=== PATIENT | male | born 1970 | race Caucasian/White ===

== ENCOUNTER 2020-11-18 14:48 | Inpatient (IN) | payer OTHER ==
[~2020-11-18] VITALS: Ht 170.2 cm; Wt 85.4 kg
[2020-11-18 16:26] LABS: HEMATOCRIT 43.3 % (42.0-52.0); HEMOGLOBIN 15.6 g/dl (13.5-17.5); MEAN CORPUSCULAR HEMOGLOBIN 32.5 pg (27.0-33.0); MEAN CORPUSCULAR VOLUME 90.2 fl (80.0-96.0); PLATELET COUNT, AUTOMATED 212 10^3/uL (150-450); WHITE BLOOD COUNT 7.2 10^3/uL (4.0-10.0)
[2020-11-18 16:59] LABS: ACETAMINOPHEN LEVEL < 2.0 UG/ML (10.0-30.0); ALT/SGPT 50 U/L (12-78); BILIRUBIN,DIRECT 0.6 MG/DL (0.0-0.2); BILIRUBIN,TOTAL 1.7 MG/DL (0.2-1.0); BLOOD UREA NITROGEN 15 MG/DL (7-18); CARBON DIOXIDE LEVEL 27 MEQ/L (21-32); CHLORIDE LEVEL 103 MEQ/L (98-107); CPK CREATINE PHOSPHOKINASE 394 U/L (39-308); CREATININE FOR GFR 1.41 MG/DL (0.70-1.30); ETHYL ALCOHOL (ETHANOL) < 0.003 % (0.000-0.010); GLOMERULAR FILTRATION RATE 56.4 (>56); GLUCOSE, FASTING 105 MG/DL (70-100); POTASSIUM SERUM 3.7 MEQ/L (3.5-5.1); SALICYLATE LEVEL 2.9 MG/DL (5.0-30.0); SODIUM LEVEL 140 MEQ/L (136-145); TOTAL PROTEIN 7.5 GM/DL (6.4-8.2)
--- NOTE | 2020-11-18 17:59 | ECGEPIP ---
[facility] - ED Test Date: 2020-11-18 Pat Name: JONATHAN LORA Department: Room: - Gender: Male Pool Coordinator: : 1970 Requested By: Jovita Day Order Number: [id number] Reading MD: Jason Melvin Measurements Intervals [place] Rate: 71 P: RI: 136 QRS: 14 QRSD: 96 T: -10 QT: 412 QTc: 447 Interpretive Statements Sinus rhythm with premature atrial complexes with aberrant conduction Nonspecific T wave abnormality Comparison tracing not on file Electronically Signed on 11-18-2020 17:58:57 EDT by Jason Melvin
[2020-11-18 18:05] LABS: AMPHETAMINES LEVEL URINE POSITIVE (NEGATIVE); BARBITURATES URINE NEGATIVE (NEGATIVE); BENZODIAZEPINES URINE NEGATIVE (NEGATIVE); CANNABINOIDS URINE NEGATIVE (NEGATIVE); COCAINE METABOLITE URINE POSITIVE (NEGATIVE); METHADONE URINE NEGATIVE (NEGATIVE); OPIATES URINE NEGATIVE (NEGATIVE); PHENCYCLIDINE URINE NEGATIVE (NEGATIVE)
[2020-11-19] MEDS ORDERED: GABA-282 PO (09:18)
[2020-11-19] MEDS ORDERED: METO1TAB87 PO (09:18)
[2020-11-19] MEDS ORDERED: OLOP0.1D OU (09:18)
[2020-11-19] MEDS ORDERED: TRAZ1TAB14 PO (09:18)
[2020-11-19] MEDS ORDERED: CETI-24 PO (09:18)
[2020-11-19] MEDS ORDERED: PANT40TA29 PO (09:18)
[2020-11-19] MEDS ORDERED: PROB500T8 PO (09:18)
[2020-11-19] MEDS ORDERED: LEXA1TAB PO (09:18)
[2020-11-19] MEDS ORDERED: MAGIC MOUTHWASH SUSPENSION BTL SSP PRN (09:35)
[2020-11-20] MEDS: PROBENECID 500 MG TAB PO SCH ×2 (09:00→21:41)
[2020-11-20] MEDS ORDERED: ACETAMINOPHEN TAB 650MG DOSE (2X325MG) PO ONE ×2 (10:50→22:10)
[2020-11-20] MEDS: METOPROLOL TART 25 MG TABLET PO SCH ×2 (11:23→21:40)
[2020-11-20] MEDS: PANTOPRAZOLE 40MG TAB (PROTONIX) PO SCH (11:23)
[2020-11-20] MEDS: ESCITALOPRAM OXALATE 10 MG TAB (LEXAPRO) PO SCH (11:23)
[2020-11-20] MEDS: GABAPENTIN 300 MG CAP PO SCH ×2 (11:24→21:39)
[2020-11-20] MEDS: CETIRIZINE (ZyrTEC) 10 MG TAB PO SCH (11:24)
[2020-11-20] MEDS ORDERED: traZODone 50 MG TAB PO SCH (21:00)
[2020-11-21] MEDS: NICOTINE 21MG/24HR 1 EA TRANSDERMAL TD SCH (09:00)
[2020-11-21] MEDS: ESCITALOPRAM OXALATE 10 MG TAB (LEXAPRO) PO SCH (09:29)
[2020-11-21] MEDS: PROBENECID 500 MG TAB PO SCH ×2 (09:29→20:22)
[2020-11-21] MEDS: CETIRIZINE (ZyrTEC) 10 MG TAB PO SCH (09:29)
[2020-11-21] MEDS: GABAPENTIN 300 MG CAP PO SCH ×2 (09:29→20:22)
[2020-11-21] MEDS: METOPROLOL TART 25 MG TABLET PO SCH ×2 (09:30→20:21)
[2020-11-21] MEDS: PANTOPRAZOLE 40MG TAB (PROTONIX) PO SCH (09:30)
[2020-11-21 09:35] LABS: RSV AMPLIFICATION NEGATIVE (NEGATIVE)
[2020-11-21] MEDS ORDERED: ACETAMINOPHEN TAB 650MG DOSE (2X325MG) PO ONE (09:35)
[2020-11-21] MEDS ORDERED: OLANZapine ORAL DISINTEGRATING TAB 5MG PO PRN (13:25)
[2020-11-21] MEDS ORDERED: MOM 30ML SUSPENSION UDC PO PRN (13:25)
[2020-11-21 13:59] VITALS: BP 110/67
[2020-11-21] MEDS: ACETAMINOPHEN TAB 650MG DOSE (2X325MG) PO PRN (19:53)
[2020-11-21] MEDS: traZODone 50 MG TAB PO SCH (20:22)
[2020-11-22 06:34] VITALS: BP 124/69
[2020-11-22] MEDS: ACETAMINOPHEN TAB 650MG DOSE (2X325MG) PO PRN (08:36)
[2020-11-22] MEDS: PROBENECID 500 MG TAB PO SCH ×2 (08:36→20:56)
[2020-11-22] MEDS: PANTOPRAZOLE 40MG TAB (PROTONIX) PO SCH (08:36)
[2020-11-22] MEDS: GABAPENTIN 300 MG CAP PO SCH ×2 (08:36→20:57)
[2020-11-22] MEDS: METOPROLOL TART 25 MG TABLET PO SCH ×2 (08:37→20:57)
[2020-11-22] MEDS: ESCITALOPRAM OXALATE 10 MG TAB (LEXAPRO) PO SCH (08:37)
[2020-11-22] MEDS: CETIRIZINE (ZyrTEC) 10 MG TAB PO SCH (08:37)
[2020-11-22] MEDS: NICOTINE 21MG/24HR 1 EA TRANSDERMAL TD SCH (08:37)
--- NOTE | 2020-11-22 09:24 | MHHPEPDOC ---
General Date Of Admission: Nov 21, 2020 Legal Status: 9.39 Chief Complaint I was just scared and depressed I was thinking about jumping into a river ". History of Present Illness HISTORY OF THE PRESENT ILLNESS: Patient is a 50 -year-old , male, who [has extensive history of polysubstance abuse and depression with a recent discharge from an inpatient rehab facility in [place] in October. Patient came to [place] with his girlfriend to start a new life and was staying at his girlfriend's place but was using cocaine and tita . He was not able to find any permanent housing and had to leave his girlfriend's place and was feeling depressed hopeless and somewhat worthless. He came to the emergency room reporting vague suicidal ideas of jumping into a river and was admitted on 939 status. He denies any psychosis denies any history of jennie but has a long history of depression and has been taking Lexapro but his situation is not improving and he has no support system and has no financial resources and was feeling increasingly depressed.]. Psychiatric Review of Systems Depression (2 or more weeks): depressed mood, feelings of worthlesness, decreased energy, suicidal thoughts Jennie (4 or more days of): denies Psychosis: denies PTSD: denies Anxiety: situational anxiety Past Psychiatric History Previous Psychiatric Diagnosis: . Depression and polysubstance abuse Previous Psychiatric Admissions: . Past admissions in [place] and [facility]. recent inpatient treatment for rehab in October 2020 Suicide Attempts: . No history of a suicidal attempt Psychiatric Follow-up: . No outpatient linkage Psychiatric medications: . Taking Lexapro Past Medical History Medical Problems Has hypertension Head Injury: No Seizures: No Hospitalizations: No Surgeries: No Family Medical/Psychiatric HX Medical Problems Noncontributory Psychiatric Disorders: No (Has no contact with his family and he is not sure of their psychiatric history) Addiction: No Suicide Attemps/Completions: No Addiction History cocaine, other (tita) Social History Childhood: . Born in [place] Abuse/Trauma:. No history of abuse Current Living Situation: Homeless. Education: . High school Employment: . Unemployed has no financial resources Social Support: . No support system Legal: . Denies any legal history Marital: . Was once has 2 children with no contact Mental Status Examination General Appearance: appears stated age Build: average Demeanor: average Eye Contact: average Activity: average Behavior: cooperative Speech: clear, spontaneous, normal volume Mood: depressed Mood Depressed feeling sad hopeless worthless primarily due to his current life sit uation Affect: appropriate, congruent Thought Process: logical/linear Thought Content (Delusions): denies SI, HI, AVH, other (Had thoughts of suicide by jumping into a river but no clear intent) Thought Content (Other): none reported Thought Content (Aggressive): none reported Perception (Hallucinations): none reported Perception (Other): none reported Cognition (Impairment of): none reported Cognition(Intelligence Est.): average Oriented: Awake, Alert, Oriented times three Insight: fair Judgment: Fair Diagnoses Depressive disorder NOS polysubstance abuse A-FIB/CHADSVASC A-FIB History Current/History of A-Fib/PAF?: No Current PO Anticoag Therapy: No Age/Risk Factor Scoring CHADSVASC: CHADSVASC Response (Comments) Value Age Risk Factor Age < 65 years old 0 Gender Risk Factor Male 0 Hx of CHF No 0 Hx of HTN Yes 1 Hx of Stroke/TIA/or VTE No 0 Hx of Diabetes No 0 Hx of Vascular Disease No 0 Total 1 Treatment Treatment ordered: NONE Assessment Moderate depression due to multiple situational stress. Patient is not psychotic not actively suicidal but has no safe discharge plan and has no support system. We will continue his [facility] safe discharge plan Initial Treatment Plan 1. Patient was admitted on a 9.39 status. 2. Complete history was obtained. 3. With patients permission, family will be contacted and database will be expanded. 4. Patients medication regimen will be reviewed and changed accordingly. 5. Patient will be provided with protected environment. 6. Patient will be treated with individual, group, and milieu therapies. 7. Patient will receive supportive psych-education. 8. Discharge planning will commence immediately. 9. Outpatient follow-up treatment will be strongly recommended. 10. The initial treatment plan will focus initially on: * Depression. * Risk for suicide. ESTIMATED LENGTH OF STAY: 3-5 DAYS. TIME SPENT COUNSELING AND COORDINATING INITIAL CARE: 40 minutes. Tobacco Cessation Screen If Patient is a Smoker Yes Tobacco Cessation Tx Ordered?: Yes N/A-No Antipsychotics Vital Signs Vital Signs Date Time Temp Pulse Resp B/P (MAP) Pulse Ox O2 Delivery O2 Flow Rate FiO2 11/22/20 08:37 63 124/69 11/22/20 06:34 98.1 18 94 Room Air Medications Scheduled Cetirizine HCl (Cetirizine HCl) 10 Mg Tablet, 10 MG PO DAILY, (Reported) Escitalopram Oxalate (Lexapro) 10 Mg Tablet, 10 MG PO DAILY, (Reported) Gabapentin (Gabapentin) 300 Mg Capsule, 300 MG PO BID, (Reported) Metoprolol Tartrate (Metoprolol Tartrate) 25 Mg Tablet, 25 MG PO BID, (Reported) Pantoprazole Sodium (Pantoprazole Sodium) 40 Mg Tablet.dr, 40 MG PO DAILY, (Reported) Probenecid (Probenecid) 500 Mg Tablet, 500 MG PO BID, (Reported) Trazodone HCl (Trazodone HCl) 150 Mg Tablet, 150 MG PO QHS, (Reported) Allergies Coded Allergies: allopurinol (Verified Allergy, Unknown, HIVES/BLISTER, 11/18/20) povidone-iodine (Verified Allergy, Unknown, HIVES/BLISTERS, 11/18/20) soap (Verified Allergy, Unknown, HIVES/BLISTERS, 11/18/20) PARAG LONDON M.D. Nov 22, 2020 09:24
[2020-11-22 17:27] VITALS: BP 116/82
--- NOTE | 2020-11-22 19:43 | HPEPDOC ---
General Date of Admission Nov 21, 2020 at 13:23 Date of Service: Nov 22, 2020 Chief Complaint The patient is a 50-year-old male admitted with a reason for visit of Depressive Disorder Nos. Source: Patient Exam Limitations: Clinical conditions History of Present Illness Patient is 50 years old male with past medical history of polysubstance abuse, depression, rheumatoid arthritis presented to hospital with acute psychosis. . He came to the emergency room reporting vague suicidal ideas of jumping into a river and was admitted. During my interview patient denied fever, chills, nausea, secondary dysuria. He complains of knee pain bilaterally. 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 His next dose of Humira supposed to be tomorrow Home Medications Scheduled Cetirizine HCl (Cetirizine HCl) 10 Mg Tablet, 10 MG PO DAILY, (Reported) Escitalopram Oxalate (Lexapro) 10 Mg Tablet, 10 MG PO DAILY, (Reported) Gabapentin (Gabapentin) 300 Mg Capsule, 300 MG PO BID, (Reported) Metoprolol Tartrate (Metoprolol Tartrate) 25 Mg Tablet, 25 MG PO BID, (Reported) Pantoprazole Sodium (Pantoprazole Sodium) 40 Mg Tablet.dr, 40 MG PO DAILY, (Reported) Probenecid (Probenecid) 500 Mg Tablet, 500 MG PO BID, (Reported) Trazodone HCl (Trazodone HCl) 150 Mg Tablet, 150 MG PO QHS, (Reported) Allergies Coded Allergies: allopurinol (Verified Allergy, Unknown, HIVES/BLISTER, 11/18/20) povidone-iodine (Verified Allergy, Unknown, HIVES/BLISTERS, 11/18/20) soap (Verified Allergy, Unknown, HIVES/BLISTERS, 11/18/20) Past Medical History Medical History Hypertension Bipolar disorder, depression, rheumatoid arthritis, polysubstance abuse, COPD Surgical History Both parents for COPD, father has diabetes Social History * Smoker: current smoker Alcohol: Denies Drugs: cocaine, IV drug use (Leticia) A-FIB/CHADSVASC A-FIB History Current/History of A-Fib/PAF?: No Current PO Anticoag Therapy: No Age/Risk Factor Scoring CHADSVASC: CHADSVASC Response (Comments) Value Gender Risk Factor Male 0 Hx of CHF No 0 Hx of HTN Yes 1 Hx of Stroke/TIA/or VTE No 0 Hx of Diabetes No 0 Hx of Vascular Disease No 0 Total 1 Review of Systems Constitutional: Denies: Chills, Fever Eyes: Denies: Pain ENT: Denies: Head Aches Skin: Denies: Rash Pulmonary: Denies: Dyspnea Cardiovascular: Denies: Chest Pain Gastrointestinal: Denies: Nausea Hematologic: Denies: Bruising Endocrine: Denies: Polydipsia Musculoskeletal: Reports: Leg Pain; Denies: Neck Pain Neurological: Denies: Weakness Psych: Reports: Depression Physical Examination General Exam: Positive: Alert Eye Exam: Positive: PERRLA ENT Exam: Positive: Atraumatic Neck Exam: Positive: Supple; Negative: JVD Chest Exam: Positive: Clear to auscultation Heart Exam: Positive: Rate Normal Telemetry: Positive: No significant arrhythmia Abdomen Exam: Positive: Normal bowel sounds Extremity Exam: Negative: Clubbing Skin Exam: Positive: Nl turgor and temperature Neuro Exam: Positive: Cranial Nerves 3-12 NL Psych Exam: Positive: Oriented x 3 Vital Signs Vital Signs Date Time Temp Pulse Resp B/P (MAP) Pulse Ox O2 Delivery O2 Flow Rate FiO2 11/22/20 17:27 97.6 62 16 116/82 (93) 11/22/20 10:18 Room Air 11/22/20 06:34 94 Assessment/Plan Patient is 50 years old male with past medical history of polysubstance abuse, depression, rheumatoid arthritis presented to hospital with acute psychosis. . He came to the emergency room reporting vague suicidal ideas of jumping into a river and was admitted. During my interview patient denied fever, chills, nausea, secondary dysuria. He complains of knee pain bilaterally. 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 His next dose of Humira supposed to be mu orrow I will start daily prednisone Most likely patient will need Humira in the outpatient settings (4) Hypertension Status: Chronic Problem Text: Blood pressure under control (5) GERD (gastroesophageal reflux disease) Status: Chronic Problem Text: Continue PPI Plan / VTE VTE Prophylaxis Ordered?: No VTE Exclusion Mechanical Proph: Low Risk for VTE DAYNA YIP DO Nov 22, 2020 19:43
[2020-11-22] MEDS ORDERED: predniSONE 10 MG TAB PO ONE (19:45)
[2020-11-22 20:49] LABS: HEMATOCRIT 43.8 % (42.0-52.0); HEMOGLOBIN 15.2 g/dl (13.5-17.5); MEAN CORPUSCULAR HEMOGLOBIN 32.3 pg (27.0-33.0); MEAN CORPUSCULAR HGB CONC 34.7 g/dl (32.0-36.5); MEAN CORPUSCULAR VOLUME 93.2 fl (80.0-96.0); PLATELET COUNT, AUTOMATED 205 10^3/uL (150-450); WHITE BLOOD COUNT 7.7 10^3/uL (4.0-10.0)
[2020-11-22] MEDS: traZODone 50 MG TAB PO SCH (20:57)
[2020-11-22 21:18] LABS: ALBUMIN 3.9 GM/DL (3.2-5.2); BILIRUBIN,TOTAL 0.5 MG/DL (0.2-1.0); CALCIUM LEVEL 8.9 MG/DL (8.5-10.1); CREATININE FOR GFR 1.37 MG/DL (0.70-1.30); GLOMERULAR FILTRATION RATE 58.3 (>56); POTASSIUM SERUM 4.5 MEQ/L (3.5-5.1); TOTAL PROTEIN 7.3 GM/DL (6.4-8.2)
[2020-11-22 21:28] LABS: BASOPHILS 3 % (0-1); EOSINOPHILS 4 % (0-3); LYMPHOCYTES 38 % (16-44); MONOCYTES 3 % (0-5); NEUTROPHILS 51 % (28-66); PLASMA CELL 1 % (0-0)
[2020-11-22 21:29] LABS: PLATELET ESTIMATE NORMAL (NORMAL)
[2020-11-23 05:38] VITALS: BP 115/78
[2020-11-23 06:00] VITALS: BP 115/78
[2020-11-23] MEDS: PROBENECID 500 MG TAB PO SCH ×2 (08:14→20:25)
[2020-11-23] MEDS: METOPROLOL TART 25 MG TABLET PO SCH ×2 (08:15→20:27)
[2020-11-23] MEDS: CETIRIZINE (ZyrTEC) 10 MG TAB PO SCH (08:15)
[2020-11-23] MEDS: predniSONE 10 MG TAB PO SCH (08:15)
[2020-11-23] MEDS: PANTOPRAZOLE 40MG TAB (PROTONIX) PO SCH (08:16)
[2020-11-23] MEDS: ESCITALOPRAM OXALATE 10 MG TAB (LEXAPRO) PO SCH (08:16)
[2020-11-23] MEDS: NICOTINE 21MG/24HR 1 EA TRANSDERMAL TD SCH (08:16)
[2020-11-23] MEDS: GABAPENTIN 300 MG CAP PO SCH ×2 (08:16→20:25)
[2020-11-23] MEDS: ACETAMINOPHEN TAB 650MG DOSE (2X325MG) PO PRN ×2 (08:17→19:46)
--- NOTE | 2020-11-23 10:58 | MHIPNPDOC ---
[facility] [place] Progress Note Progress Note DATE OF SERVICE: 11/23/20 Cooperating with the brennan routine and the medicine and has no new complaints. He reports that he feels somewhat hopeless and helpless and depressed but no suicidal plan or intent. He is quite concerned that he has no safe place to go and has no support system and willing to cooperate with the help. He is in no acute distress and is eating and sleeping well and is denying any active suicidal thoughts. HISTORY: . VITAL SIGNS: See below. NEW TEST RESULTS: . CURRENT MEDICATIONS: See below. MENTAL STATUS EXAMINATION: Patient is a [50]-year old male, who is in no acute distress. Speech: Is rational and coherent. Language skills are fair. Thought processes including: Relevant. Thought content: Coherent. Abstract reasoning, and computation: Fair. Description of associations: Organized. Description of abnormal or psychotic thoughts: No psychotic symptoms. Judgment: Fair. Insight: Fair.. Orientation: Oriented. Recent and remote memory: No impairment. Attention span and concentration: Fair. Language:. Fund of knowledge:. Mood: Depressed. Affect: Appropriate. DIAGNOSES: 1.. Depressive disorder NOS 2.. Polysubstance abuse 3.. ASSESSMENT: In no acute distress and cooperating MANAGEMENT PLAN: Supportive therapy discharge planning. TIME SPENT: 20 minutes. Vital Signs Vital Signs Date Time Temp Pulse Resp B/P (MAP) Pulse Ox O2 Delivery O2 Flow Rate FiO2 11/23/20 10:45 Room Air 11/23/20 08:15 73 115/78 11/23/20 06:00 98.3 18 97 Laboratory Data 24H Labs Laboratory Tests 2 11/22/20 20:27: Neutrophils (%) (Auto) , Nucleated Red Blood Cells % (auto) 0.0, Neutrophils 51, Lymphocytes (Manual) 38, Monocytes (Manual) 3, Eosinophils (Manual) 4H, Basophils (Manual) 3H, Plasma Cells 1H, Red Blood Cell Morphology NORMAL, Platelet Estimate NORMAL, Anion Gap 5L, Glomerular Filtration Rate 58.3, Calcium Level 8.9, Total Bilirubin 0.5, Aspartate Amino Transf (AST/SGOT) 26, Alanine Aminotransferase (ALT/SGPT) 64, Alkaline Phosphatase 109, Total Protein 7.3, Albumin 3.9, Albumin/Globulin Ratio 1.1 CBC/BMP Laboratory Tests 11/22/20 20:27 Current Medications Current Medications Medications (Trade) Dose Ordered Sig/Clary Route PRN Reason Start Time Stop Time Status Last Admin Dose Admin Acetaminophen (Tylenol Tab) 650 mg Q6HP PRN PO HEADACHE or MILD DISCOMFORT 11/21/20 13:25 11/23/20 08:17 Al Hydrox/Mg Hydrox/Simethicone (Mylanta) 30 ml Q4HP PRN PO HEARTBURN/INDIGESTION 11/21/20 13:25 Cetirizine HCl (ZyrTEC) 10 mg DAILY PO 11/20/20 09:00 11/21/20 13:28 DC 11/21/20 09:29 Cetirizine HCl (ZyrTEC) 10 mg DAILY PO 11/22/20 09:00 11/23/20 08:15 Escitalopram Oxalate (Lexapro) 10 mg DAILY PO 11/20/20 09:00 11/21/20 13:28 DC 11/21/20 09:29 Escitalopram Oxalate (Lexapro) 10 mg DAILY PO 11/22/20 09:00 11/23/20 08:16 Gabapentin (Neurontin) 300 mg BID PO 11/20/20 09:00 11/21/20 13:28 DC 11/21/20 09:29 Gabapentin (Neurontin) 300 mg BID PO 11/21/20 21:00 11/23/20 08:16 Home Med (Med Rec Complete!) ASDIRECTED XX 11/19/20 18:25 11/19/20 18:24 DC Lidocaine/ Diphenhydr/Alum/ Mg/Simeth (Magic Mouthwash) 1 ea TIDP PRN SSP ORAL PAIN/DISCOMFORT 11/19/20 09:35 11/21/20 13:28 DC 11/19/20 11:23 Magnesium Hydroxide (Milk Of Magnesia) 30 ml DAILYPRN PRN PO CONSTIPATION 11/21/20 13:25 Metoprolol Tartrate (Lopressor) 25 mg BID PO 11/20/20 09:00 11/21/20 13:28 DC 11/21/20 09:30 Metoprolol Tartrate (Lopressor) 25 mg BID PO 11/21/20 21:00 11/23/20 08:15 Nicotine (Nicoderm Cq 21mg) 1 patch DAILY TD 11/21/20 09:00 11/23/20 08:16 Olanzapine (ZyPREXA ZYDIS) 5 mg Q4HP PRN PO AGITATION 11/21/20 13:25 Pantoprazole Sodium (Protonix) 40 mg DAILY PO 11/20/20 09:00 11/21/20 13:28 DC 11/21/20 09:30 Pantoprazole Sodium (Protonix) 40 mg DAILY PO 11/22/20 09:00 11/23/20 08:16 Prednisone (Deltasone) 10 mg DAILY PO 11/23/20 09:00 11/23/20 08:15 Probenecid (Benemid) 500 mg BID PO 11/20/20 09:00 11/21/20 13:28 DC 11/21/20 09:29 Probenecid (Benemid) 500 mg BID PO 11/21/20 21:00 11/23/20 08:14 Trazodone HCl (Desyrel) 150 mg QHS PO 11/20/20 21:00 11/21/20 13:28 DC 11/20/20 21:40 Trazodone HCl (Desyrel) 150 mg QHS PO 11/21/20 21:00 11/22/20 20:57 Allergies Coded Allergies: allopurinol (Verified Allergy, Unknown, HIVES/BLISTER, 11/18/20) povidone-iodine (Verified Allergy, Unknown, HIVES/BLISTERS, 11/18/20) soap (Verified Allergy, Unknown, HIVES/BLISTERS, 11/18/20) PARAG LONDON M.D. Nov 23, 2020 10:58
[2020-11-23 18:43] VITALS: BP 126/77
[2020-11-23] MEDS: traZODone 50 MG TAB PO SCH (20:25)
[2020-11-23] MEDS: MAALOX 30 ML SUSP *UDC PO PRN (23:02)
[2020-11-24 05:40] VITALS: BP 139/73
[2020-11-24] MEDS: PROBENECID 500 MG TAB PO SCH ×2 (08:00→20:32)
[2020-11-24] MEDS: CETIRIZINE (ZyrTEC) 10 MG TAB PO SCH (08:00)
[2020-11-24] MEDS: METOPROLOL TART 25 MG TABLET PO SCH ×2 (08:00→21:00)
[2020-11-24] MEDS: PANTOPRAZOLE 40MG TAB (PROTONIX) PO SCH (08:00)
[2020-11-24] MEDS: predniSONE 10 MG TAB PO SCH (08:00)
[2020-11-24] MEDS: NICOTINE 21MG/24HR 1 EA TRANSDERMAL TD SCH (08:00)
[2020-11-24] MEDS: GABAPENTIN 300 MG CAP PO SCH ×2 (08:00→20:32)
[2020-11-24] MEDS: ESCITALOPRAM OXALATE 10 MG TAB (LEXAPRO) PO SCH (08:01)
--- NOTE | 2020-11-24 10:55 | MHIPNPDOC ---
[facility] Progress Note Progress Note DATE OF SERVICE: 11/24/20 The patient is fully cooperating with water activity and medications and maintaining good control. He is pleasant and appropriate but remains markedly depressed and feeling quite hopeless and helpless. He stated that he cannot find any support system and does not have any future plan and has no financial resources and feeling lost. He is denying any active suicidal plan or intent and states that he just wants help so he can move on with his life. He is cooperating with the space planner and will be considered for applying for emergency support but has difficulty obtaining any support because of the fact that he only recently came to [facility] from [place]. HISTORY:. VITAL SIGNS: See below. NEW TEST RESULTS:. CURRENT MEDICATIONS: See below. MENTAL STATUS EXAMINATION: Patient is a 50-year old male, who is in no acute distress. Speech: Is rational and coherent. Language skills are fair. Thought processes including: Relevant. Thought content: Denies any active suicidal plan. Abstract reasoning, and computation: Fair. Description of associations: Organized. Description of abnormal or psychotic thoughts: Denies any psychotic symptoms. Judgment: Fair]. Insight: Fair.. Orientation: Well oriented. Recent and remote memory: Unimpaired. Attention span and concentration: Fair. Language:. Fund of knowledge:. Mood: Depressed anxious. Affect: Appropriate. DIAGNOSES: 1.. Adjustment disorder with mixed emotion 2.. Polysubstance abuse 3.. ASSESSMENT: Remains depressed feeling hopeless helpless MANAGEMENT PLAN: Supportive therapy developed discharge plan. TIME SPENT: Minutes. Vital Signs Vital Signs Date Time Temp Pulse Resp B/P (MAP) Pulse Ox O2 Delivery O2 Flow Rate FiO2 11/24/20 08:04 Room Air 11/24/20 08:00 57 139/73 11/24/20 05:40 98.4 18 96 Current Medications Current Medications Medications (Trade) Dose Ordered Sig/Clary Route PRN Reason Start Time Stop Time Status Last Admin Dose Admin Acetaminophen (Tylenol Tab) 650 mg Q6HP PRN PO HEADACHE or MILD DISCOMFORT 11/21/20 13:25 11/23/20 19:46 Al Hydrox/Mg Hydrox/Simethicone (Mylanta) 30 ml Q4HP PRN PO HEARTBURN/INDIGESTION 11/21/20 13:25 11/23/20 23:02 Cetirizine HCl (ZyrTEC) 10 mg DAILY PO 11/20/20 09:00 11/21/20 13:28 DC 11/21/20 09:29 Cetirizine HCl (ZyrTEC) 10 mg DAILY PO 11/22/20 09:00 11/24/20 08:00 Escitalopram Oxalate (Lexapro) 10 mg DAILY PO 11/20/20 09:00 11/21/20 13:28 DC 11/21/20 09:29 Escitalopram Oxalate (Lexapro) 10 mg DAILY PO 11/22/20 09:00 11/24/20 08:01 Gabapentin (Neurontin) 300 mg BID PO 11/20/20 09:00 11/21/20 13:28 DC 11/21/20 09:29 Gabapentin (Neurontin) 300 mg BID PO 11/21/20 21:00 11/24/20 08:00 Home Med (Med Rec Complete!) ASDIRECTED XX 11/19/20 18:25 11/19/20 18:24 DC Lidocaine/ Diphenhydr/Alum/ Mg/Simeth (Magic Mouthwash) 1 ea TIDP PRN SSP ORAL PAIN/DISCOMFORT 11/19/20 09:35 11/21/20 13:28 DC 11/19/20 11:23 Magnesium Hydroxide (Milk Of Magnesia) 30 ml DAILYPRN PRN PO CONSTIPATION 11/21/20 13:25 Metoprolol Tartrate (Lopressor) 25 mg BID PO 11/20/20 09:00 11/21/20 13:28 DC 11/21/20 09:30 Metoprolol Tartrate (Lopressor) 25 mg BID PO 11/21/20 21:00 11/24/20 08:00 Nicotine (Nicoderm Cq 21mg) 1 patch DAILY TD 11/21/20 09:00 11/24/20 08:00 Olanzapine (ZyPREXA ZYDIS) 5 mg Q4HP PRN PO AGITATION 11/21/20 13:25 Pantoprazole Sodium (Protonix) 40 mg DAILY PO 11/20/20 09:00 11/21/20 13:28 DC 11/21/20 09:30 Pantoprazole Sodium (Protonix) 40 mg DAILY PO 11/22/20 09:00 11/24/20 08:00 Prednisone (Deltasone) 10 mg DAILY PO 11/23/20 09:00 11/24/20 08:00 Probenecid (Benemid) 500 mg BID PO 11/20/20 09:00 11/21/20 13:28 DC 11/21/20 09:29 Probenecid (Benemid) 500 mg BID PO 11/21/20 21:00 11/24/20 08:00 Trazodone HCl (Desyrel) 150 mg QHS PO 11/20/20 21:00 11/21/20 13:28 DC 11/20/20 21:40 Trazodone HCl (Desyrel) 150 mg QHS PO 11/21/20 21:00 11/23/20 20:25 Allergies Coded Allergies: allopurinol (Verified Allergy, Unknown, HIVES/BLISTER, 11/18/20) povidone-iodine (Verified Allergy, Unknown, HIVES/BLISTERS, 11/18/20) soap (Verified Allergy, Unknown, HIVES/BLISTERS, 11/18/20) PARAG LONDON M.D. Nov 24, 2020 10:55
[2020-11-24 17:30] VITALS: BP 139/83
[2020-11-24] MEDS: ACETAMINOPHEN TAB 650MG DOSE (2X325MG) PO PRN (19:48)
[2020-11-24] MEDS: traZODone 50 MG TAB PO SCH (20:32)
[2020-11-24] MEDS: MAALOX 30 ML SUSP *UDC PO PRN (20:38)
[2020-11-24 20:41] VITALS: BP 122/78
[2020-11-25 07:07] VITALS: BP 114/78
[2020-11-25] MEDS: GABAPENTIN 300 MG CAP PO SCH ×2 (08:31→20:10)
[2020-11-25] MEDS: ESCITALOPRAM OXALATE 10 MG TAB (LEXAPRO) PO SCH (08:31)
[2020-11-25] MEDS: PANTOPRAZOLE 40MG TAB (PROTONIX) PO SCH (08:31)
[2020-11-25] MEDS: METOPROLOL TART 25 MG TABLET PO SCH ×2 (08:31→20:11)
[2020-11-25] MEDS: CETIRIZINE (ZyrTEC) 10 MG TAB PO SCH (08:31)
[2020-11-25] MEDS: predniSONE 10 MG TAB PO SCH (08:31)
[2020-11-25] MEDS: NICOTINE 21MG/24HR 1 EA TRANSDERMAL TD SCH (08:32)
[2020-11-25] MEDS: PROBENECID 500 MG TAB PO SCH ×2 (08:32→20:10)
[2020-11-25] MEDS ORDERED: MAGIC MOUTHWASH SUSPENSION BTL SSP PRN (10:50)
[2020-11-25] MEDS: POLYVINYL ALCOHOL OPHTH SOLN 15 ML(LIQUITEARS) OU PRN (15:48)
[2020-11-25 16:17] VITALS: BP 135/78
[2020-11-25] MEDS: ACETAMINOPHEN TAB 650MG DOSE (2X325MG) PO PRN (20:12)
[2020-11-25] MEDS: traZODone 50 MG TAB PO SCH (21:41)
[2020-11-25] MEDS: MAALOX 30 ML SUSP *UDC PO PRN (21:41)
[2020-11-26 05:48] VITALS: BP 159/92
[2020-11-26] MEDS: ACETAMINOPHEN TAB 650MG DOSE (2X325MG) PO PRN ×2 (08:27→20:17)
[2020-11-26] MEDS: GABAPENTIN 300 MG CAP PO SCH ×2 (08:27→20:16)
[2020-11-26] MEDS: METOPROLOL TART 25 MG TABLET PO SCH ×2 (08:27→20:17)
[2020-11-26] MEDS: PROBENECID 500 MG TAB PO SCH ×2 (08:27→20:16)
[2020-11-26] MEDS: predniSONE 10 MG TAB PO SCH (08:27)
[2020-11-26] MEDS: PANTOPRAZOLE 40MG TAB (PROTONIX) PO SCH (08:27)
[2020-11-26] MEDS: ESCITALOPRAM OXALATE 10 MG TAB (LEXAPRO) PO SCH (08:27)
[2020-11-26] MEDS: CETIRIZINE (ZyrTEC) 10 MG TAB PO SCH (08:28)
[2020-11-26] MEDS: NICOTINE 21MG/24HR 1 EA TRANSDERMAL TD SCH (08:28)
[2020-11-26] MEDS: POLYVINYL ALCOHOL OPHTH SOLN 15 ML(LIQUITEARS) OU PRN (09:46)
[2020-11-26] MEDS: traZODone 50 MG TAB PO SCH (20:16)
--- NOTE | 2020-11-26 22:43 | MHIPN ---
[facility] PROGRESS NOTE DATE: 11/25/2020 The patient today is seen via telepsychiatry due to the current Coronavirus crisis. He says that he is doing "okay." He is not suicidal. He states that he is finding a place to live at. He also complains he has a sore throat. He would like for me to prescribe some mouth rinse that they prescribed for him downstairs and also some lubricating drops for his eyes. MENTAL STATUS EXAMINATION: He is alert and oriented times three. He is cooperative, verbally spontaneous. There is no formal thought disorder noted. He says his mood is "okay." Affect constricted but appropriate. He is not psychotic, suicidal, or homicidal. Concentration and memory is good. Insight and judgment is good. TREATMENT PLAN: We will continue to monitor the patient for continued stabilization of his mood and resolution of suicidal ideations and we will titrate medications as indicated.
[2020-11-27 06:08] VITALS: BP 116/69
[2020-11-27] MEDS: predniSONE 10 MG TAB PO SCH (08:24)
[2020-11-27] MEDS: PROBENECID 500 MG TAB PO SCH (08:24)
[2020-11-27] MEDS: CETIRIZINE (ZyrTEC) 10 MG TAB PO SCH (08:24)
[2020-11-27] MEDS: GABAPENTIN 300 MG CAP PO SCH (08:25)
[2020-11-27] MEDS: ACETAMINOPHEN TAB 650MG DOSE (2X325MG) PO PRN (08:26)
[2020-11-27] MEDS: POLYVINYL ALCOHOL OPHTH SOLN 15 ML(LIQUITEARS) OU PRN (08:26)
[2020-11-27] MEDS: PANTOPRAZOLE 40MG TAB (PROTONIX) PO SCH (08:26)
[2020-11-27] MEDS: ESCITALOPRAM OXALATE 10 MG TAB (LEXAPRO) PO SCH (08:26)
[2020-11-27 08:27] VITALS: BP 116/69
[2020-11-27] MEDS: NICOTINE 21MG/24HR 1 EA TRANSDERMAL TD SCH (08:27)
[2020-11-27] MEDS: METOPROLOL TART 25 MG TABLET PO SCH (08:27)
--- NOTE | 2020-11-27 10:32 | MHDSPDOC ---
[facility] Discharge Summary Discharge Summary DATE OF ADMISSION: Nov 21, 2020 at 13:23 DATE OF DISCHARGE: November 27, 2020 DISCHARGE DIAGNOSES: 1.. Depressive disorder NOS 2.. Polysubstance abuse REASON FOR ADMISSION: 50-year-old male with a long history of polysubstance abuse admitted to the inpatient unit due to complaint of increasing depression feeling sad hopeless helpless and ongoing drug abuse primarily cocaine. Patient has past inpatient treatment for drug rehabilitation in the [facility] and came to [facility] in October and has been actively using. Patient has no support system around this place and came to emergency room reporting increasing depression CONSULTANTS INVOLVED: TREATMENT AND PROGRESS ON THE UNIT : Patient was maintained on his medications of Lexapro 10 mg and trazodone 150 mg at bedtime and continued on his blood pressure medicine of metoprolol and Neurontin and probenecid.. HOSPITAL COURSE: Patient is fully cooperated and remained in good control. He denies any clear suicidal plan or intent and has no history of suicidal attempt. He is primarily depressed due to his lack of housing and having no other support system in this area. He did not show any acting out behavior and denies any psychotic symptoms and denies any suicidal thoughts. He is primarily seeking safe housing and has no support system in this area so he will be discharged to go to [facility] for emergency housing help. DISCHARGE ASSESSMENT: Stable not suicidal MENTAL STATUS EXAMINATION ON DISCHARGE: Patient is a 50-year old male, who is in no acute distress. Speech is rational coherent]. Language skills are fair. Thought processes including: Relevant. Thought content: No suicidal thoughts. Abstract reasoning, and computation: Fair. Description of associations: Relevant. Description of abnormal or psychotic thoughts: Not psychotic. Judgment: Fair. Insight: Fair. Orientation to oriented. Recent and remote memory: No impairment. Attention span and concentration: Fair. Language:. Fund of knowledge:. Mood: Mildly anxious. Affect: Appropriate. MEDICATIONS ON DISCHARGE: -For. Patient is to continue his home medications -For. -For. PLAN/FOLLOWUP ARRANGEMENTS: Arranged by senior planner. The amount of time spent in the coordination of care for this patient was approximately 35 minutes. ETOH/Disorder Med Rx ETOH/DRUG DISORDER RX: N/A Vital Signs/I&Os Vital Signs Date Time Temp Pulse Resp B/P (MAP) Pulse Ox O2 Delivery O2 Flow Rate FiO2 11/27/20 08:27 61 116/69 11/27/20 06:08 98.3 16 96 Room Air Medications Scheduled Cetirizine HCl (Cetirizine HCl) 10 Mg Tablet, 10 MG PO DAILY, (Reported) Escitalopram Oxalate (Lexapro) 10 Mg Tablet, 10 MG PO DAILY, (Reported) Gabapentin (Gabapentin) 300 Mg Capsule, 300 MG PO BID, (Reported) Metoprolol Tartrate (Metoprolol Tartrate) 25 Mg Tablet, 25 MG PO BID, (Reported) Pantoprazole Sodium (Pantoprazole Sodium) 40 Mg Tablet.dr, 40 MG PO DAILY, (Reported) Probenecid (Probenecid) 500 Mg Tablet, 500 MG PO BID, (Reported) Trazodone HCl (Trazodone HCl) 150 Mg Tablet, 150 MG PO QHS, (Reported) Allergies Coded Allergies: allopurinol (Verified Allergy, Unknown, HIVES/BLISTER, 11/18/20) povidone-iodine (Verified Allergy, Unknown, HIVES/BLISTERS, 11/18/20) soap (Verified Allergy, Unknown, HIVES/BLISTERS, 11/18/20) PARAG LONDON M.D. Nov 27, 2020 10:32
== END 2020-11-27 14:23 | disposition home or self-care (01) | DRG 751 ==
LOC: M ED 14:48 → M ED INP 11-21 13:23 → M PSY 11-21 14:04
PROVIDERS: ADMIT Psychiatry & Neurology Psychiatry; ATTEND Psychiatry & Neurology Psychiatry
DX: F32.1 Major depressive disorder, single episode, moderate (principal); I10 Essential (primary) hypertension; R45.851 Suicidal ideations; F14.10 Cocaine abuse, uncomplicated; F11.10 Opioid abuse, uncomplicated; K21.9 Gastro-esophageal reflux disease without esophagitis; F43.25 Adjustment disorder with mixed disturbance of emotions and conduct; J44.9 Chronic obstructive pulmonary disease, unspecified; F17.200 Nicotine dependence, unspecified, uncomplicated; M06.9 Rheumatoid arthritis, unspecified; Z79.899 Other long term (current) drug therapy; Z88.8 Allergy status to other drugs, medicaments and biological substances; Z91.048 Other nonmedicinal substance allergy status

== ENCOUNTER → 2021-04-23 | Outpatient (REF) | payer OTHER ==
[~2021-04-23] MED LIST: CETI-24 PO; GABA-282 PO; LEXA1TAB PO; METO1TAB87 PO; OLOP0.1D OU; PANT40TA29 PO; PROB500T8 PO; TRAZ1TAB14 PO
[2021-04-23 12:42] LABS: APPEARANCE, URINE CLEAR (CLEAR); BACTERIA, URINE AUTO NEGATIVE (NEGATIVE); BILIRUBIN, URINE AUTO NEGATIVE (NEGATIVE); BLOOD, URINE BLOOD NEGATIVE (NEGATIVE); COLOR, URINE YELLOW (YELLOW); GLUCOSE, URINE (UA) AUTO NEGATIVE (NEGATIVE); KETONE, URINE AUTO NEGATIVE (NEGATIVE); LEUKOCYTE ESTERASE, URINE AUTO NEGATIVE (NEGATIVE); MUCUS, URINE SMALL (NEGATIVE); NITRITE, URINE AUTO NEGATIVE (NEGATIVE); PROTEIN, URINE AUTO NEGATIVE (NEGATIVE); RBC, URINE AUTO 1 /HPF (0-3); SPECIFIC GRAVITY URINE AUTO 1.013 (1.002-1.035); SQUAMOUS EPITHELIAL CELL UR AU 0 /HPF (0-6); UROBILINOGEN, URINE AUTO 0.2 mg/dL (0.0-2.0); WBC, URINE AUTO 0 /HPF (0-3)
[2021-04-23 13:52] LABS: CREATININE,RANDOM URINE 74.3 MG/DL; TOTAL PROTEIN,RANDOM URINE 9.2 MG/DL (0.0-12.0)
[2021-04-23 19:14] LABS: ALT/SGPT 139 U/L (12-78); BILIRUBIN,DIRECT 0.2 MG/DL (0.0-0.2); BILIRUBIN,TOTAL 0.9 MG/DL (0.2-1.0); COMPLEMENT C3 152 MG/DL (90-180); COMPLEMENT C4 22 MG/DL (10-40); HEPATITIS B SURFACE ANTIBODY NEGATIVE (POSITIVE); HEPATITIS B SURFACE ANTIGEN NEGATIVE (NEGATIVE); IMMUNOGLOBULIN G 1490 MG/DL (681-1648); IRON (FE) 83 UG/DL (65-175); PHOSPHORUS LEVEL 3.7 MG/DL (2.5-4.9); TOTAL 25(OH) VITAMIN D 48.7 NG/ML (30.0-100.0); TOTAL PROTEIN 8.2 GM/DL (6.4-8.2); VITAMIN B12 LEVEL 503 PG/ML (247-911)
[2021-04-23 19:50] LABS: HEPATITIS C VIRUS ABY INDEX > 11.0 INDEX (<0.8)
[2021-04-25 11:08] LABS: ALBUMIN 4.91 GM/DL (3.29-5.55); ALBUMIN % 59.9 % (55.8-66.1); ALPHA-1-GLOBULINS 0.33 GM/DL (0.17-0.41); ALPHA-2-GLOBULINS 0.58 GM/DL (0.42-0.99); ALPHA-2-GLOBULINS % 7.1 % (7.1-11.8); BETA-1-GLOBULINS 0.52 GM/DL (0.28-0.60); BETA-1-GLOBULINS % 6.4 % (4.7-7.2); BETA-2-GLOBULINS 0.33 GM/DL (0.19-0.55); GAMMA GLOBULIN % 18.6 % (11.1-18.8); GAMMA GLOBULINS 1.53 GM/DL (0.65-1.58)
[2021-04-25 16:10] LABS: COMPLEMENT TOTAL (CH50) < 10 U/mL (>41); G6PD2 4.78 x10E6/uL (4.14-5.80); HEPATITIS B CORE ANTIBODY IGG Negative (Negative)
[2021-04-27 09:58] LABS: DRVV SCREEN 48.1 SEC
[2021-04-27 10:00] LABS: PTT LUPUS TYPE ANTICOAG SCREEN 1.3 (0-1.2)
[2021-04-27 10:10] LABS: DRVV CONFIRM 42.8 SEC; LUPUS CONFIRM RATIO 1.1
[2021-04-27 10:18] LABS: NORMALIZED RATIO 1.18 (0.00-1.20)
== END ==
LOC: M SFHCRHEU 10:32
PROVIDERS: ATTEND Internal Medicine
DX: M06.4 Inflammatory polyarthropathy (principal); M79.10 Myalgia, unspecified site; R74.8 Abnormal levels of other serum enzymes; M1A.09X1 Idiopathic chronic gout, multiple sites, with tophus (tophi); M06.9 Rheumatoid arthritis, unspecified

== ENCOUNTER → 2021-08-02 | Outpatient (REF) | payer OTHER ==
[~2021-08-02] MED LIST changes: -OLOP0.1D OU; +OLOP5DRO16 OU
[2021-08-02 17:31] LABS: CALCIUM LEVEL 9.6 MG/DL (8.5-10.1); PERCENT SATURATION 32.1 % (19.7-50.0)
[2021-08-02 17:39] LABS: PTH INTACT 33.4 PG/ML (18.5-88.0)
== END ==
LOC: M SFHCRHEU 12:44
PROVIDERS: ATTEND Internal Medicine
DX: M11.20 Other chondrocalcinosis, unspecified site (principal)